=== PATIENT | female | born 1965 | race African-American/Black ===

== ENCOUNTER 2017-06-28 22:35 | Emergency (ER) | payer OTHER ==
[~2017-06-28] VITALS: Ht 165.1 cm; Wt 65.9 kg
[2017-06-28] MEDS ORDERED: SODIUM CHLORIDE 0.9% 1,000 ML IV ONE (23:59)
[2017-06-29 00:45] LABS: BASOPHILS % 0.9 % (0.0-2.0); EOSINOPHILS % 4.3 % (0.0-5.0); HEMATOCRIT. 24.1 % (36.0-48.0); HEMOGLOBIN. 7.6 g/dL (12.0-16.0); LYMPHOCYTES % 21.7 % (20.0-50.0); MEAN CORPUSCULAR HEMOGLOBIN 21.7 pg (28.0-32.0); MEAN CORPUSCULAR VOLUME 68.8 fL (81.0-99.0); MONOCYTES % 8.7 % (2.0-8.0); NEUTROPHILS % 64.4 % (40.0-76.0); PLATELET 876 x1000/uL (130-400); RED CELL DISTRIBUTION WIDTH 22.7 % (11.6-14.6)
[2017-06-29 00:51] LABS: CHLORIDE 107 mEq/L (98-107)
[2017-06-29 00:54] LABS: ETHANOL BLOOD < 10 mg/dL
[2017-06-29 00:59] LABS: PROTHROMBIN TIME 10.6 sec (9.4-11.6)
[2017-06-29 01:34] LABS: PLATELET ESTIMATE INCREASED
[2017-06-29 02:21] VITALS: BP 122/64
== END 2017-06-29 02:22 | disposition home or self-care (01) ==
LOC: ER 22:35 → CANBEDREQ 06-29 03:29
DX: R55 Syncope and collapse (principal); Q04.6 Congenital cerebral cysts; D50.9 Iron deficiency anemia, unspecified; F17.210 Nicotine dependence, cigarettes, uncomplicated
CPT/HCPCS: 36415; 70450; 71045; 80053; 83605; 84484; 85025; 85610; 93005; 96360; 96361; 99285; G0482; J7030